=== PATIENT | male | born 1990 | race Caucasian/White ===

== ENCOUNTER 2022-03-18 09:25 | Emergency (ER) | payer OTHER, SELFPAY ==
--- NOTE | ~2022-03-18 | CT_ITS ---
EXAMINATION: CT PELVIS WITH CONTRAST CLINICAL INFORMATION: Hemorrhoid with pus. Question of anal foreign body. Rule out deeper infection. COMPARISON: None TECHNIQUE: Helical scanning was performed with submillimeter collimation through the pelvis with the use of oral contrast and during bolus intravenous injection of 85 mL of Omnipaque 350 intravenous contrast. Sagittal and coronal multiplanar 2-D reconstructions were obtained. This CT examination was performed using dose optimization techniques as appropriate, variously including the following: *Automated exposure control *Adjustment of mA and/or kV according to patient size (this includes techniques or standardized protocols for targeted exams where dose is matched to indication/reason for exam; i.e. extremities or head) *Use of iterative reconstruction technique DLP: 273 mGy-cm FINDINGS: PELVIS: No pelvic mass. Normally distended bladder. No wall thickening. The prostate and seminal vesicles are unremarkable. Small fat-containing bilateral inguinal hernias. No bowel obstruction. Normal appendix. No colonic wall thickening or inflammatory change. There is no focal significant soft tissue abnormality in the region of the anus. No radiopaque foreign body. No fluid collection. OSSEOUS STRUCTURES: No acute or suspicious osseous abnormality. CT/CT pelvis w IV con IMPRESSION: No acute findings in the pelvis. No focal soft tissue abnormality in the region of the anus. No radiopaque foreign body. No fluid collection.
[2022-03-18 09:36] VITALS: BP 141/66; PULSE 100; RESP 20; TEMP 36.7; O2SAT 99; BMI 29.9
--- NOTE | 2022-03-18 10:51 | ED_ITS ---
HPI - General Adult General Chief complaint: GI Bleed Stated complaint: Abscess Buttock Area Time Seen by Provider: 03/18/22 10:39 Source: patient Mode of arrival: ambulatory History of Present Illness HPI narrative: 31-year-old male with a past medical history of HIV with undetectable levels, rectal dysplasia, presenting to the ED complaining of worsening hemorrhoidal pain/swelling and bleeding x few days. Reports woke up this morning with blood in underwear. Denies recent anal intercourse or FB. Denies fever, chills, abdominal pain, nausea/vomiting, constipation/diarrhea, dysuria/hematuria. denies taking anticoagulation Onset (ago): day(s) Related Data Previous Rx's Medication Instructions Recorded hydrocortisone 2.5 % topical cream 1 appl topical BID PRN itching #30 03/18/22 grams lidocaine 5 % topical cream 1 appl topical BID PRN pain #30 03/18/22 grams Allergies Allergy/AdvReac Type Severity Reaction Status Date / Time bee pollen [bee stings] Allergy Anaphylaxis Verified 03/18/22 09:41 sulfamethoxazole AdvReac Rash Verified 03/18/22 09:41 [From Bactrim] trimethoprim [From Bactrim] AdvReac Rash Verified 03/18/22 09:41 Review of Systems Review of Systems: Constitutional: No Fever, No Chills,No Fatigue, No Malaise ENT/Mouth: No Ear Pain, No sore throat, No Rhinorrhea, No Swallowing Difficulty Eyes: No Eye Pain, No Swelling, No Redness Cardiovascular: No Chest Pain, No SOB Respiratory: No Cough, No Sputum, No Dyspnea Gastrointestinal: No Nausea, No Vomiting, No Diarrhea, No Constipation, No Abdominal pain, +rectal pain, +rectal bleeding, No Melena Genitourinary: No Dysuria, No Hematuria, No Urinary Incontinence/retention, No Flank Pain Musculoskeletal: No joint pain, No Myalgias, No Joint Swelling Skin: No Skin Lesions, No rash Neuro: No Weakness, No Headache Yes all other systems are reviewed and are negative Constitutional: Constitutional: Reports as per [facility] Past Medical History Attestation statement: The following information was validated with the patient. Social History Social History Advance Directives: No Advance Directives Information Provided: No Physical Exam ED Vital Signs: Vital Signs - 24 hr 03/18/22 09:36 Temperature 98.1 F Pulse Rate 100 Respiratory Rate 20 Blood Pressure 141/66 H Pulse Oximetry 99 Oxygen Delivery Method Room Air BMI result Body Mass Index 29.9 Const General: cooperative, healthy appearing and no acute distress Orientation/consciousness: patient oriented x3 Limitations: no limitations HENMT Head: Yes normal to inspection and Yes atraumatic Ears: hearing grossly normal bilaterally General nose exam: Normal external nose present Face and sinus: Yes normal facial exam Eyes General: appearance normal, both eyes and all related structures EOM: EOMs intact bilaterally Neck Neck: Yes normal visual inspection and Yes no meningeal signs Resp Effort & Inspection: normal respiratory effort and no respiratory distress Cardio Rate: regular rate GI Other: + 2 large external hemorrhoids noted at 03:00 o'clock and 09:00 o'clock position, small area of thrombosis to 3 o'clock hemorrhoid. Small bleeding noted. Small amount of pus expressed from 03:00 o'clock hemorrhoid. + abnormal firm pedunculated cauliflower like tissue noted at about 5 o'clock region, internally. No fluctuance/induration or cellulitis Inspection: Yes normal to inspection Palpation (GI): Soft to palpation, nontender, no guarding and not rigid General: Yes no CVA tenderness Back/Spine/Pelvis Back: no CVA tenderness Skin Rashes: no rashes Wounds: no wounds Neuro General: patient oriented x3, tone normal and no meningeal signs Gait exam (Neuro): Normal gait present Extrem General: Yes normal to inspection Course Course Course Narrative: -1242-- mild leukocytosis of 12.1. Labs otherwise unremarkable CT pelvis w IV con IMPRESSION: No acute findings in the pelvis. No focal soft tissue abnormality in the region of the anus. No radiopaque foreign body. No fluid collection. >> thrombosed hemorrhoid I&D'd without complications or hemorrhage. It is small amount of blood and scant pus expressed. No clots. > Discussed with patient at length the importance of close colorectal follow-up for biopsy and further workup. Case discussed with Dr. Sanchez however deferr ed to Colorectal surgery, spoke with Dr. Wray, recommended outpatient follow-up in the office mid week next week Results discussed with patient including worrisome signs and symptoms and strict return precautions, and when to return to the emergency department. They verbalized understanding and feel safe for discharge at this time. Medications Administered Discontinued Medications Generic Name Dose Route Start Last Admin Trade Name Sebastian PRN Reason Stop Dose Admin Hydroxyzine HCl 25 mg 03/18/22 11:36 03/18/22 11:46 Hydroxyzine Hcl 25 Mg Tablet PO 03/18/22 11:37 25 mg ONCE ONE Administration Iohexol 85 ml 03/18/22 12:04 03/18/22 12:05 Iohexol 350 Mg/Ml 100 Ml Infus..Btl IV 03/18/22 12:05 85 ml ONCE ONE Administration Ketorolac Tromethamine 15 mg 03/18/22 11:36 03/18/22 11:46 Ketorolac Tromethamine 15 Mg/Ml Vial IVPUSH 03/18/22 11:37 15 mg ONCE ONE Administration Lidocaine/Epinephrine 10 ml 03/18/22 13:01 03/18/22 13:23 Lidocaine Hcl 1%/Epi 1:100,000 30 Ml Vial INFILTRATI 03/18/22 13:02 10 ml ONCE ONE Administration Tranexamic Acid 500 mg 03/18/22 13:01 03/18/22 13:22 Tranexamic Acid 1,000 Mg/10 Ml Vial INTRANASAL 03/18/22 13:02 500 mg ONCE ONE Administration Medical Decision Making Medical Decision Making MDM Narrative: 31-year-old male with a past medical history of HIV with undetectable levels, rectal dysplasia, presenting to the ED complaining of worsening hemorrhoidal pain/swelling and bleeding x few days. on exam vital signs stable, appears in pain, abdomen soft/ nontender, on rectal exam thrombosed hemorrhoid noted also with our abnormal tissue protruding from rectum. Small amount of pus expressed from thrombosed hemorrhoid. No cellulitis/fluctuance or induration. No evidence of Ernesto's gangrene. Concern for hemorrhoidal pain/bleeding vs perianal abscess vs fistula vs HPV or squamous cell. Lower suspicion for GI bleed. R/o infection Case d/w Dr. Montes who also evaluated patient and is in agreement with plan Plan: Labs, UA, CTAP, I & D, Reassess Please refer to course for remaining clinical decision making, interpretation of labs/imaging results, and discussions with consultants and/or family members. Differential Diagnosis Differential Diagnoses: The differential diagnosis associated with the presentation includes as above Admission/Observation Consideration of admission/observation: Escalation of care including admission/observation considered Consult Healthcare Provider Management of the patient was discussed with: Master Pilot Lab Data MDM Lab Attestation statement: I reviewed the patient's lab results. 03/18/22 11:33 03/18/22 11:33 Labs: Lab Results 03/18/22 03/18/22 03/18/22 Range/Units 11:33 11:33 14:49 WBC 12.1 H (4.8-10.8) X10*3/uL RBC 5.20 (4.60-5.80) X10*6/uL Hgb 16.8 (14.0-18.0) g/dl Hct 46.1 (42.0-52.0) % MCV 88.7 (80.0-98.0) fL MCH 32.3 (27.0-33.0) pg MCHC 36.4 H (31.0-36.0) g/dl RDW 11.9 (11.0-16.0) % Plt Count 219 (160-400) X10*3/uL MPV 10.6 (9.4-12.4) fL Immature Gran % (Auto) 0.2 (0.0-0.4) % Neut % (Auto) 77.7 H (45-73) % Lymph % (Auto) 16.4 L (20-40) % [place] % (Auto) 5.4 (2-11) % Eos % (Auto) 0.2 (0-4) % Baso % (Auto) 0.1 (0-2) % Lymph # (Auto) 2.0 (1.2-4.9) X10*3/uL [place] # (Auto) 0.7 (0.1-1.2) X10*3/uL Eos # (Auto) 0.0 (0.0-0.4) X10*3/uL Baso # (Auto) 0.0 (0.0-0.2) X10*3/uL Abs Immat Gran (auto) 0.03 (0.00-0.03) X10*3/uL Absolute Neuts (auto) 9.4 H (2.0-8.3) x10*3/uL Absolute Nucleated RBC 0.000 (0.0-0.012) X10*3/uL Nucleated RBC % (auto) 0.0 (0.0-0.2) /100WBC Sodium 141 (135-145) mmol/L Potassium 3.8 (3.3-5.1) mmol/L Chloride 109 H (96-108) mmol/L Carbon Dioxide 22 (22-29) mmol/L Anion Gap 14 (12-20) BUN 8 L (9-16) mg/dL Creatinine 0.77 (0.5-1.4) mg/dL Estim Creat Clear Calc 139.2 Estimated GFR > 60 Random Glucose 97 (60-115) mg/dL Calcium 9.8 (8.4-10.2) mg/dL Magnesium 1.9 (1.6-2.6) mg/dL Total Bilirubin 0.8 (0.0-1.0) mg/dL Direct Bilirubin 0.2 (0.0-0.5) mg/dL AST 22 (5-37) U/L ALT 20 (0-40) U/L Alkaline Phosphatase 122 H (39-117) U/L Total Protein 7.9 (6.5-8.0) g/dL Albumin 4.9 (3.5-5.0) g/dL Urine Color Yellow Urine Appearance Clear Urine pH 5.5 (5.0-9.0) Ur Specific [place] >= 1.030 H (1.005-1.025) Urine Protein 30 (1+) H (Neg-Trace) mg/dL Urine Glucose (UA) Negative (Negative) mg/dL Urine Ketones 15 (Negative) mg/dL Urine Blood Negative (Negative) Urine Nitrite Negative (Negative) Ur Leukocyte Esterase Negative (Negative) Radiology Impression Discussion of test interpretation with radiology: I have reviewed the radiologist's reading. Prescription Management I considered prescription management with: Pain Medication and Antibiotic Chronic Conditions Patient?s care impacted by: Other Discharge Plan Discharge Clinical Impression: Hemorrhoid thrombosis, Abnormality of soft tissue on examination Patient Disposition: Home, Self-Care Instructions: Hemorrhoids (ED), Soft Tissue Mass (ED) Additional Instructions: your blood work was reassuring. CT scan did not show a deeper infection You had a thrombosed hemorrhoid that was drain today. please practice its baths at home. In addition apply topical lidocaine and hydrocortisone cream. You have abnormal tissue in her rectal area, this is concerning for possible HPV or scary or things like potential cancer, this needs to be worked up outpatient, call surgical office today or on Monday to make an appointment for next week, they will be waiting for your call if symptoms persist or worsen, you develop constant or worsening bleeding/unbearable pain, fever return to the emergency department Prescriptions: New hydrocortisone 2.5 % cream 1 appl topical BID PRN (Reason: itching) Qty: 30 0RF lidocaine 5 % cream 1 appl topical BID PRN (Reason: pain) Qty: 30 0RF Referrals: [facility] [place] General Surgeons [Provider Group] - 2 days
[2022-03-18 11:39] LABS: MANUAL DIFF FLAG NO
[2022-03-18 11:43] LABS: Basophils Percent Auto 0.1 % (0-2); Eosinophils Percent Auto 0.2 % (0-4); Hematocrit 46.1 % (42.0-52.0); Hemoglobin 16.8 g/dl (14.0-18.0); Imm Gran Abs Auto 0.03 X10*3/uL (0.00-0.03); Imm Gran Pct Auto 0.2 % (0.0-0.4); Lymphocytes Percent Auto 16.4 % (20-40); Mean Corpuscular HGB Conc 36.4 g/dl (31.0-36.0); Mean Corpuscular Hemoglobin 32.3 pg (27.0-33.0); Mean Corpuscular Volume 88.7 fL (80.0-98.0); Mean Platelet Volume 10.6 fL (9.4-12.4); Monocytes Absolute Auto 0.7 X10*3/uL (0.1-1.2); Monocytes Percent Auto 5.4 % (2-11); Neutrophils Absolute Auto 9.4 x10*3/uL (2.0-8.3); Neutrophils Percent Auto 77.7 % (45-73); Platelet Count 219 X10*3/uL (160-400); Red Cell Distribution Width 11.9 % (11.0-16.0); White Blood Count 12.1 X10*3/uL (4.8-10.8)
[2022-03-18] MEDS: Ketorolac Tromethamine 15 MG/ML VIAL IVPUSH (11:46)
[2022-03-18] MEDS: hydrOXYzine HCL 25 MG TABLET PO (11:46)
[2022-03-18 11:58] LABS: Alanine Aminotransferase 20 U/L (0-40); Albumin Level 4.9 g/dL (3.5-5.0); Alkaline Phosphatase 122 U/L (39-117); Anion Gap 14 (12-20); Aspartate Amino Transferase 22 U/L (5-37); Bilirubin Direct 0.2 mg/dL (0.0-0.5); Bilirubin Total 0.8 mg/dL (0.0-1.0); Blood Urea Nitrogen 8 mg/dL (9-16); Calcium 9.8 mg/dL (8.4-10.2); Carbon Dioxide 22 mmol/L (22-29); Chloride 109 mmol/L (96-108); Creatinine Clr Calc Pharmacy 139.2; Estimated Glomerular Filt Rate > 60; Glucose Random 97 mg/dL (60-115); Magnesium 1.9 mg/dL (1.6-2.6); Potassium 3.8 mmol/L (3.3-5.1); Sodium 141 mmol/L (135-145); Total Protein 7.9 g/dL (6.5-8.0)
[2022-03-18] MEDS: iohexoL 350 MG/ML 100 ML INFUS..BTL 85 ML IV (12:05)
[2022-03-18] MEDS: Tranexamic Acid 1,000 MG/10 ML VIAL 500 MG INTRANASAL (13:22)
[2022-03-18 15:10] LABS: Appearance Urine Clear; Color Urine Yellow; Glucose Urine UA Negative (Negative); Leukocyte Esterase Urine Negative (Negative); Nitrite Urine Negative (Negative); PH 5.5 (5.0-9.0); Specific Gravity - Urine >= 1.030 (1.005-1.025); UMIC TRIGGER UACC YES; Urine Blood Negative (Negative); Urine Ketones 15 mg/dL (Negative); Urine Protein 30 (1+) mg/dL (Neg-Trace)
[2022-03-18 15:36] LABS: Bacteria Urine None Seen (None Seen); Hyaline Casts Urine 0-2 /LPF (0-2); RBC Urine 0-2 /HPF (0-2); Squamous Epithelial Cell Urine 0-2 /HPF (0-2); WBC Urine 0-5 /HPF (0-5)
== END 2022-03-18 15:43 | disposition home or self-care (01) ==
PROVIDERS: Physician Assistant; Emergency Provider Student in an Organized Health Care Education/Training Program; PCP Internal Medicine
DX: K64.5 Perianal venous thrombosis (principal); R10.2 Pelvic and perineal pain; Z79.899 Other long term (current) drug therapy
CPT/HCPCS: 36415; 72193; 80048; 80076; 81001; 81003; 83735; 85025; 96374; 99283; 99284; J1885; Q9967

== ENCOUNTER → 2022-03-21 14:58 | Outpatient (BNVA) | payer OTHER, SELFPAY | PROVIDERS: PCP Internal Medicine; Visit Provider Surgery | DX: K64.5 Perianal venous thrombosis (principal) | CPT/HCPCS: 99202 ==